=== PATIENT | female | born 1965 | race Caucasian/White ===

== ENCOUNTER 2020-01-05 16:05 | Observation (INO) | payer OTHER, SELFPAY ==
[2020-01-05 16:44] LABS: Absolute Lymphocytes (CBC) 2.6 K/uL (0.7-4.9); Basophils % 0.5 % (0-1.3); Hematocrit 47.3 % (36.0-45.0); Lymphocytes % 16.5 % (15.3-44.8); MPV 9.3 fL (7.6-11.3); RBC Red Blood Cell Count 4.98 M/uL (3.86-4.86)
[2020-01-05] MEDS ORDERED: ONDANSETRON 4 MG/2 ML VIAL ONE ×2 (16:49→22:28)
[2020-01-05] MEDS ORDERED: NA CHLORIDE 0.9% 1,000 ML ONE ×3 (16:49→23:37)
[2020-01-05 17:01] LABS: ALT/SGPT 26 U/L (12-78); AST/SGOT 18 U/L (15-37); Albumin 4.5 g/dL (3.4-5.0); Alkaline Phosphatase 91 U/L (45-117); BUN Blood Urea Nitrogen 21 mg/dL (7-18); Bicarbonate 26 mmol/L (21-32); Bilirubin Direct < 0.1 mg/dL (0-0.2); Bilirubin Total 0.4 mg/dL (0.2-1.0); Glucose Level 159 mg/dL (74-106); Lipase 91 U/L (73-393); Potassium 3.4 mmol/L (3.5-5.1); Protein, Total 8.7 g/dL (6.4-8.2); Sodium Level 132 mmol/L (136-145)
[2020-01-05] MEDS ORDERED: METOCLOPRAMIDE 10 MG/2mL INJ ONE (17:26)
[2020-01-05] MEDS ORDERED: MORPHINE 2 MG/ML SYR ONE (17:26)
[2020-01-05] MEDS ORDERED: DIPHENHYDRAMINE 50 MG/ML VIAL ONE (17:26)
[2020-01-05] MEDS ORDERED: NA CHLORIDE 0.9% 100 ML IV ONE (17:26)
[2020-01-05] MEDS ORDERED: LORazepam 2 MG/ML VIAL ONE (17:26)
[2020-01-05] MEDS ORDERED: FENTANYL CITR 100 MCG/2 ML ONE ×2 (18:23→21:03)
--- NOTE | 2020-01-05 18:58 | RAD REPORT ---
EXAM DESCRIPTION: CT - Abdomen Pelvis W Contrast - 01/05/2020 6:38 pm CLINICAL HISTORY: Abdominal pain COMPARISON: 2011 TECHNIQUE: Computed axial tomography of the abdomen pelvis was obtained. 100 cc Isovue-300 was admin istered intravenously. Oral contrast was not requested which limits evaluation of bowel. All CT scans are performed using dose optimization technique as appropriate and may include automated exposure control or mA/KV adjustment according to patient size. FINDINGS: Cholecystectomy. Fatty liver Spleen, pancreas, left adrenal and kidneys appear unremarkable. Small right adrenal adenoma unchanged . There is no evidence of diverticulitis. IMPRESSION: No acute abnormality is displayed.
[2020-01-05 19:43] LABS: Urine Blood TRACE (NEG); Urine Glucose NEGATIVE (NEG); Urine Protein 1+ (NEG); Urine pH 5.5 (5.0-7.0)
[2020-01-05] MEDS ORDERED: ACETAMINOPHEN 500 MG TAB ONE (21:09)
[2020-01-05] MEDS ORDERED: PANTOPRAZOLE 40 MG INJ ONE (21:09)
--- NOTE | 2020-01-05 21:37 | P.HP ---
Certification for Inpatient Patient admitted to: Observation With expected LOS: <2 Midnights Practitioner: I am a practitioner with admitting privileges, knowledge of patient current condition, hospital course, and medical plan of care. Services: Services provided to patient in accordance with Admission requirements found in Title 42 Section 412.3 of the Code of Federal Regulations Patient History Date of Service: 01/05/20 Reason for admission: Abdominal pain History of Present Illness: 54-year-old woman with a history hypertension presented emergency department with a complaint of abdominal pain of onset 3 days ago. Patient states the abdominal pain started a few hours after eating a burger with jalapeno. She started vomiting and having diarrhea yesterday. She denied any fever. She reports that she has not been able to tolerate any liquid or food. She describes a constant abdominal pain most severe in the right lower quadrant, nonradiating. CT abdomen and pelvis done in the ED was unremarkable. Patient has not tolerated oral challenge in the ED. She has been requiring IV opioids for pain control. She is hospitalized for further management. Allergies No Known Allergies Allergy (Unverified 05/11/12 10:42) Home Medications: Estradiol 0.5 tab PO DAILY 11/08/11 Lisinopril/Hydrochlorothiazide [Lisinopril-Hctz 20-12.5 mg Tab] 1 tab PO DAILY 11/08/11 Ciprofloxacin HCl [Cipro] 500 mg PO BID #0 tablet 05/14/12 Hydrocodone Bit/Acetaminophen [[place] 10-325 Tablet] 1 tab PO Q8H PRN #0 tablet 05/14/12 Promethazine HCl [Phenergan] 25 mg PO Q8H PRN #0 tablet 05/14/12 metroNIDAZOLE [Flagyl] 500 mg PO TID #0 tablet 05/14/12 - Past Medical/Surgical History Diabetic: No -: Hypertension -: Colonoscopy - Family History Mother -: GI disease (Diverticulitis, Crohn's disease) - Social History Smoking Status: Former smoker Alcohol use: No CD- Drugs: No Caffeine use: No Review of Systems Other: Except as documented, all other systems reviewed and negative. Physical Examination - Physical Exam General: Alert, Mild distress (Due to pain) HEENT: Mucous membr. moist/pink, Sclerae nonicteric Neck: Supple, JVD not distended Respiratory: Clear to auscultation bilaterally, Normal air movement Cardiovascular: No edema, Normal S1 S2, Other (Regular rhythm, tachycardic) Capillary refill: <2 Seconds Gastrointestinal: Normal bowel sounds, Non-distended, No rebound, No guarding, Tenderness (Diffuse) Musculoskeletal: No swelling, No erythema Integumentary: No rashes Neurological: Normal speech, Normal strength at 5/5 x4 extr - Studies Laboratory Data (last 24 hrs) 01/05/20 16:35: WBC 15.8 H, Hgb 16.0 H, Hct 47.3 H, Plt Count 295 01/05/20 16:35: Sodium 132 L, Potassium 3.4 L, BUN 21 H, Creatinine 0.88, Glucose 159 H, Total Bilirubin 0.4, AST 18, ALT 26, Alkaline Phosphatase 91, Lipase 91 Assessment and Plan - Problems (Diagnosis) (1) Gastroenteritis Current Visit: Yes Status: Acute (2) Sepsis Current Visit: Yes Status: Acute (3) Hypertension Current Visit: Yes Status: Acute - Plan Patient meets criteria for sepsis with leukocytosis and tachycardia Place under observation Hydrate with IV normal saline given hyponatremia Start IV Cipro and Flagyl Correct electrolyte abnormalities, replete potassium Supportive measures with antiemetic and IV opiates p.r.n. for pain. - Advance Directives Does patient have a Living Will: No Does patient have a Durable POA for Healthcare: No
[2020-01-05] MEDS ORDERED: DICYCLOMINE HCL 10 MG CAP ONE (22:37)
[2020-01-05] MEDS ORDERED: ONDANSETRON 4 MG/2 ML VIAL IV PRN (23:21)
[2020-01-05] MEDS ORDERED: ACETAMINOPHEN 500 MG TAB PO PRN (23:21)
[2020-01-05] MEDS: NA CHLORIDE 0.9% 1,000 ML IV SCH (23:33)
[2020-01-06 00:02] VITALS: BMI 31.9
[2020-01-06] MEDS: METRONIDAZOLE 500mg IVPB 500 MG/100 ML BAG IV SCH ×3 (00:17→16:12)
[2020-01-06 02:01] LABS: Urine Appearance CLEAR; Urine Bilirubin NEGATIVE (NEG); Urine Blood TRACE (NEG); Urine Color YELLOW; Urine Glucose NEGATIVE (NEG); Urine Protein NEGATIVE (NEG); Urine Specific Gravity >=1.030 (1.005-1.030); Urine Urobilinogen 0.2 mg/dL (0.2-1.0)
[2020-01-06 02:04] LABS: Urine Microscopic Reflex ORDER UMIC
[2020-01-06 02:10] LABS: Urine Bacteria <20 /HPF (<20); Urine Culture Reflex Order NOT NEEDED; Urine Mucus 1+ /HPF (NONE SEEN)
[2020-01-06] MEDS: MORPHINE 2 MG/ML SYR IV PRN ×5 (03:59→20:51)
[2020-01-06 07:23] LABS: Absolute Lymphocytes (CBC) 4.5 K/uL (0.7-4.9); Basophils % 0.5 % (0-1.3); Hematocrit 37.9 % (36.0-45.0); Lymphocytes % 31.3 % (15.3-44.8); MPV 9.1 fL (7.6-11.3); RBC Red Blood Cell Count 4.02 M/uL (3.86-4.86)
[2020-01-06 07:27] LABS: BUN Blood Urea Nitrogen 11 mg/dL (7-18); Bicarbonate 25 mmol/L (21-32); Glucose Level 101 mg/dL (74-106); Magnesium 2.3 mg/dL (1.8-2.4); Phosphorus 2.4 mg/dL (2.5-4.9); Sodium Level 139 mmol/L (136-145)
[2020-01-06] MEDS: NA CHLORIDE 0.9% 1,000 ML IV SCH ×2 (08:00→16:12)
[2020-01-06] MEDS: CIPROFLOXACIN 400mg IV 400 MG/200 ML BAG IV SCH ×2 (08:01→20:50)
[2020-01-06] MEDS: ENOXAPARIN 40 MG/0.4 ML SQ SCH (08:02)
--- NOTE | 2020-01-06 08:31 | P.DS ---
Admission Date: 01/05/20 Discharge Date: 01/07/20 Disposition: ROUTINE DISCHARGE Discharge Condition: FAIR Reason for Admission: Abdominal pain Consultations: None - Problems (1) Gastroenteritis Current Visit: Yes Status: Acute (2) Sepsis Current Visit: Yes Status: Acute (3) Hypertension Current Visit: Yes Status: Acute Brief History of Present Illness: 54-year-old woman with a history hypertension presented emergency department with a complaint of abdominal pain of onset 3 days ago. Patient states the abdominal pain started a few hours after eating a burger with jalapeno. She sta rted vomiting and having diarrhea yesterday. She denied any fever. She reports that she has not been able to tolerate any liquid or food. She described a constant abdominal pain most severe in the right lower quadrant, and nonradiating. CT abdomen and pelvis done in the ED was unremarkable. Patient did not tolerated oral challenge in the ED. She was requiring IV opioids for pain control. Hospital Course: Patient placed under observation and treated supportively with IV hydration. Also treated with IV antibiotics. She had no fever. Her symptoms which include d vomiting, diarrhea and abdominal pain improved with treatment. Patient tolerated diet advancement from clear liquids solid diet. She states her abdominal pain has completely resolved. She is prescribed oral Cipro and Flagyl for acute gastroenteritis. Vital Signs/Physical Exam: Temp Pulse Resp BP Pulse Ox 98.5 F 105 H 18 149/81 H 96 01/06/20 07:40 01/06/20 07:40 01/06/20 08:01 01/06/20 07:40 01/06/20 08:01 General: Alert, In no apparent distress HEENT: Mucous membr. moist/pink Neck: Supple, JVD not distended Respiratory: Clear to auscultation bilaterally, Normal air movement Cardiovascular: No edema, Regular rate/rhythm, Normal S1 S2 Gastrointestinal: Normal bowel sounds, Soft and benign, Tenderness (Right lower quadrant.) Musculoskeletal: No swelling, No erythema Integumentary: No rashes Laboratory Data at Discharge: WBC 14.3 K/uL (4.3-10.9) H 01/06/20 07:06 Hgb 12.8 g/dL (12.0-15.0) D 01/06/20 07:06 Hct 37.9 % (36.0-45.0) D 01/06/20 07:06 Plt Count 240 K/uL (152-406) 01/06/20 07:06 Sodium 139 mmol/L (136-145) 01/06/20 07:06 Potassium 3.0 mmol/L (3.5-5.1) L 01/06/20 07:06 BUN 11 mg/dL (7-18) 01/06/20 07:06 Creatinine 0.63 mg/dL (0.55-1.3) 01/06/20 07:06 Glucose 101 mg/dL (74-106) 01/06/20 07:06 Phosphorus 2.4 mg/dL (2.5-4.9) L 01/06/20 07:06 Magnesium 2.3 mg/dL (1.8-2.4) 01/06/20 07:06 Total Bilirubin 0.4 mg/dL (0.2-1.0) 01/05/20 16:35 AST 18 U/L (15-37) 01/05/20 16:35 ALT 26 U/L (12-78) 01/05/20 16:35 Alkaline Phosphatase 91 U/L (45-117) 01/05/20 16:35 Lipase 91 U/L (73-393) 01/05/20 16:35 Home Medications: Lisinopril/Hydrochlorothiazide [Lisinopril-Hctz 20-12.5 mg Tab] 1 tab PO DAILY 11/08/11 ALPRAZolam [Xanax*] 1 mg PO BIDP PRN 01/05/20 Pantoprazole [Protonix Tab*] 40 mg PO DAILY PRN 01/05/20 Tramadol HCl [Ultram] 50 mg PO TIDP PRN 01/05/20 carvediloL [Carvedilol] 6.25 mg PO BID 01/05/20 Ciprofloxacin HCl [Cipro 500 MG Tablet] 500 mg PO BID #10 tab 01/06/20 metroNIDAZOLE [Flagyl] 500 mg PO Q8H #15 tablet 01/06/20 New Medications: Ciprofloxacin HCl [Cipro 500 MG Tablet] 500 mg PO BID #10 tab metroNIDAZOLE [Flagyl] 500 mg PO Q8H #15 tablet Diet: AHA Activity: Ad giuliana
[2020-01-06] MEDS ORDERED: PANTOPRAZOLE 40MG TABLET PO PRN (08:33)
[2020-01-06] MEDS ORDERED: ALPRAZOLAM 1 MG TABLET PO PRN (08:33)
--- NOTE | 2020-01-06 08:35 | P.PN ---
Subjective Date of Service: 01/06/20 Chief Complaint: Abdominal pain Patient states abdominal pain is much better. She has had no diarrhea or vomiting since hospitalization. Physical Examination - Vital Signs Temperature: 98.5 F Blood Pressure: 149/81 Pulse: 105 Respirations: 18 Pulse Ox (%): 96 - Physical Exam General: Alert, In no apparent distress HEENT: Mucous membr. moist/pink, Sclerae nonicteric Neck: Supple, JVD not distended Respiratory: Clear to auscultation bilaterally, Normal air movement Cardiovascular: No edema, Regular rate/rhythm, Normal S1 S2 Gastrointestinal: Normal bowel sounds, Soft and benign, Tenderness (Right lower quadrant.) Musculoskeletal: No swelling, No erythema Integumentary: No rashes - Studies Laboratory Data (last 24 hrs) 01/05/20 16:35: WBC 15.8 H, Hgb 16.0 H, Hct 47.3 H, Plt Count 295 01/05/20 16:35: Sodium 132 L, Potassium 3.4 L, BUN 21 H, Creatinine 0.88, Glucose 159 H, Total Bilirubin 0.4, AST 18, ALT 26, Alkaline Phosphatase 91, Lipase 91 Assessment And Plan - Current Problems (Diagnosis) (1) Gastroenteritis Current Visit: Yes Status: Acute (2) Sepsis Current Visit: Yes Status: Acute (3) Hypertension Current Visit: Yes Status: Acute - Plan Continue IV normal saline. Continue IV Cipro and Flagyl Correct electrolyte abnormalities, replete potassium Liquid diet and advanced as tolerated. Resume home medications.
[2020-01-06] MEDS ORDERED: HOME MED 1 EA UNK (Lisinopril/Hydrochlorothiazide [Lisinopril-Hctz 20-12.5 Mg Tab] 1 TAB) PO SCH (09:00)
[2020-01-06] MEDS ORDERED: POTASSIUM CL SA 10 MEQ TAB PO ONE (09:06)
[2020-01-06] MEDS: POTASS/SODIUM PHOSPHATE 1 PKT POWD.PACK PO SCH ×3 (09:32→12:12)
[2020-01-06] MEDS: carvediloL 6.25 MG TAB PO SCH ×2 (09:33→20:50)
[2020-01-06 22:51] VITALS: O2SAT 97
[2020-01-07] MEDS: MORPHINE 2 MG/ML SYR IV PRN ×3 (01:43→09:45)
[2020-01-07] MEDS: NA CHLORIDE 0.9% 1,000 ML IV SCH ×2 (04:15→07:21)
[2020-01-07 06:19] LABS: Absolute Lymphocytes (CBC) 3.4 K/uL (0.7-4.9); Basophils % 0.8 % (0-1.3); Hematocrit 35.5 % (36.0-45.0); Lymphocytes % 32.6 % (15.3-44.8); MPV 9.9 fL (7.6-11.3); RBC Red Blood Cell Count 3.72 M/uL (3.86-4.86)
[2020-01-07 06:21] LABS: BUN Blood Urea Nitrogen 10 mg/dL (7-18); Bicarbonate 25 mmol/L (21-32); Glucose Level 120 mg/dL (74-106); Phosphorus 2.1 mg/dL (2.5-4.9); Potassium 3.7 mmol/L (3.5-5.1); Sodium Level 143 mmol/L (136-145)
[2020-01-07] MEDS ORDERED: POTASSIUM PHOS IN 0.9 % NACL 15 MMOL/250 ML BAG IV ONE (07:45)
[2020-01-07 08:31] VITALS: BP 124/77; TEMP 98.9
[2020-01-07] MEDS ORDERED: lisinopriL 20 MG TAB PO SCH (09:00)
[2020-01-07] MEDS: ENOXAPARIN 40 MG/0.4 ML SQ SCH ×2 (09:00→09:37)
[2020-01-07] MEDS ORDERED: hydroCHLOROthiazide 12.5 MG CAP PO SCH (09:00)
[2020-01-07] MEDS: CIPROFLOXACIN 400mg IV 400 MG/200 ML BAG IV SCH (09:02)
[2020-01-07] MEDS: METRONIDAZOLE 500mg IVPB 500 MG/100 ML BAG IV SCH ×2 (09:03)
[2020-01-07] MEDS: carvediloL 6.25 MG TAB PO SCH (09:04)
[2020-01-07] MEDS ORDERED: POTASSIUM CL SA 10 MEQ TAB PO ONE (09:07)
[2020-01-07] MEDS ORDERED: POTASS/SODIUM PHOSPHATE 1 PKT POWD.PACK PO ONE (09:10)
[2020-01-07] MEDS ORDERED: POTASS/SODIUM PHOSPHATE 1 PKT POWD.PACK PO SCH (11:00)
--- NOTE | 2020-01-08 17:17 | ER ---
Nurse's Notes [facility] Name: Maude Pino Age: 54 yrs Sex: Female : 1965 Arrival Date: 01/05/2020 Time: 16:07 Bed 20 Private MD: Diagnosis: Intractable Vomiting;Intractable Abdominal Pain Presentation: 01/04 16:26 Chief complaint: Patient states: Epigastric pain radiating to R abdomen, N/V x 2 days, ph diarrhea that began yesterday, pt noted to be dry heaving in triage. Coronavirus screen: Patient denies a cough. Patient denies shortness of breath or difficulty breathing. Patient denies measured and/or subjective temperature greater than 100.4F prior to today's visit. Patient denies travel on a cruise ship or to a country the [facility] currently lists as an affected area. Patient denies contact with known and/or suspected case of COVID-19. Ebola Screen: No symptoms or risks identified at this time. Initial Sepsis Screen: Does the patient meet any 2 criteria? No. Patient's initial sepsis screen is negative. Does the patient have a suspected source of infection? No. Patient's initial sepsis screen is negative. Risk Assessment: Do you want to hurt yourself or someone else? Patient reports no desire to harm self or others. Onset of symptoms was January 05, 2020. 16:26 Method Of Arrival: Ambulatory 16:26 Acuity: ADAMA 3 ph ACTIVITY THERAPY SPECIALIST: 17:46 LMP N/A - Hysterectomy ca1 Historical: - Allergies: 16:29 No Known Allergies; ph - PMHx: 16:29 Hypertension; ph - PSHx: 16:29 Hysterectomy; ; Cholecystectomy; Appendectomy; Tonsillectomy; Hernia repair; ph left knee sx; - Immunization history:: Adult Immunizations unknown. - Social history:: Smoking status: Patient denies any tobacco usage or history of. Screenin:35 Abuse screen: Denies threats or abuse. Denies injuries from another. Nutritional ca1 screening: No deficits noted. Tuberculosis screening: No symptoms or risk factors identified. Fall Risk None identified. Assessment: 16:35 General: Appears in no apparent distress. uncomfortable, Behavior is calm, cooperative, ca1 appropriate for age. Pain: Complains of pain in epigastric area and right upper quadrant Pain radiates to posterior aspect of right lateral abdomen and anterior aspect of right lateral abdomen Pain currently is 7 out of 10 on a pain scale. Quality of pain is described as sharp, Pain began 2-3 days ago. Is continuous. Neuro: Level of Consciousness is awake, alert, obeys commands, Oriented to person, place, time, situation. Cardiovascular: Heart tones S1 S2 present Capillary refill < 3 seconds Patient's skin is warm and dry. Respiratory: Airway is patent Respiratory effort is even, unlabored, Respiratory pattern is regular, symmetrical, Breath sounds are clear bilaterally. GI: Abdomen is round non-distended, Bowel sounds present X 4 quads. Abd is soft X 4 quads Abdomen is tender to palpation in epigastric area and right upper quadrant Reports nausea, vomiting, since 3 days. : No signs and/or symptoms were reported regarding the genitourinary system. EENT: No signs and/or symptoms were reported regarding the EENT system. Derm: Skin is intact, is healthy with good turgor, Skin is pink, warm \T\ dry. Musculoskeletal: Circulation, motion, and sensation intact. Capillary refill < 3 seconds. 17:45 Reassessment: Patient appears in no apparent distress at this time. Patient and/or ca1 family updated on plan of care and expected duration. Pain level reassessed. Patient is alert, oriented x 3, equal unlabored respirations, skin warm/dry/pink. 19:24 Reassessment: Patient remains tachycardic in the 117-122 bpm range. Order received to aj1 hold discharge, administer IV fluids and then discharge patient if heart rate is less than 100. 19:26 General: Appears in no apparent distress. uncomfortable, Behavior is calm, cooperative, aj1 appropriate for age. Neuro: Level of Consciousness is awake, alert, obeys commands. Cardiovascular: Patient's skin is warm and dry. Respiratory: Airway is patent Respiratory effort is even, unlabored, Respiratory pattern is regular, symmetrical. GI: Abdomen is round non-distended, Reports nausea. EENT: No signs and/or symptoms were reported regarding the EENT system. Derm: No signs and/or symptoms reported regarding the dermatologic system. Skin is pink, warm \T\ dry. normal. Musculoskeletal: No signs and/or symptoms reported regarding the musculoskeletal system. Circulation, motion, and sensation intact. 20:30 Reassessment: Patient appears in no apparent distress at this time. No changes from 1 previously documented assessment. Patient and/or family updated on plan of care and expected duration. Pain level reassessed. Patient is alert, oriented x 3, equal unlabored respirations, skin warm/dry/pink. 21:09 Reassessment: Patient appears in no apparent distress at this time. No changes from 1 previously documented assessment. Patient and/or family updated on plan of care and expected duration. Pain level reassessed. Patient is alert, oriented x 3, equal unlabored respirations, skin warm/dry/pink. 22:14 Reassessment: Patient appears in no apparent distress at this time. No changes from aj1 previously documented assessment. Patient and/or family updated on plan of care and expected duration. Pain level reassessed. Patient is alert, oriented x 3, equal unlabored respirations, skin warm/dry/pink. 23:06 Reassessment: Patient appears in no apparent distress at this time. No changes from 1 previously documented assessment. Patient and/or family updated on plan of care and expected duration. Pain level reassessed. Patient is alert, oriented x 3, equal unlabored respirations, skin warm/dry/pink. Vital Signs: 16:26 BP 165 / 102; Pulse 117; Resp 18; Temp 99.4; Pulse Ox 96% on R/A; Weight 95.25 kg; ph Height 5 ft. 8 in. (172.72 cm); Pain 7/10; 17:45 BP 175 / 96; Pulse 110; Resp 18 S; Pulse Ox 95% on R/A; ca1 20:31 BP 135 / 78; Pulse 127; Resp 18; Pulse Ox 98% on R/A; dh4 21:08 BP 138 / 70; Pulse 126; Resp 20; Pulse Ox 96% on R/A; aj1 22:23 BP 138 / 78; Pulse 122; Resp 20; Pulse Ox 96% on R/A; dh4 22:34 Temp 99.1(TE); aj1 16:26 Body Mass Index 31.93 (95.25 kg, 172.72 cm) ph ED Course: 16:07 Patient arrived in ED. as 16:25 Ochoa Bonner PA is PHCP. yen 16:25 Sawyer Bourgeois MD is Attending Physician. jmm 16:28 Triage completed. ph 16:28 Funmilayo Barr, RN is Primary Nurse. ca1 16:29 Arm band placed on Patient placed in an exam room. ph 16:35 Patient has correct armband on for positive identification. Bed in low position. Call ca1 light in reach. Side rails up X 1. Pulse ox on. NIBP on. Warm blanket given. 16:35 No provider procedures requiring assistance completed. Inserted saline lock: 20 gauge ca1 in right antecubital area, using aseptic technique. Blood collected. 18:39 CT Abd/Pelvis - IV Contrast Only In Process Unspecified. EDMS 19:14 Report given to YASH Lara. ca1 21:17 Jayson Lisa is Hospitalizing Provider. jmm 22:15 Patient admitted, IV remains in place. aj1 22:46 Report given to YASH Hoffman on 4th floor. aj1 Administered Medications: 16:40 Drug: NS 0.9% 1000 ml Route: IV; Rate: 1 bolus; Site: right antecubital; ca1 16:41 Drug: Zofran (Ondansetron) 4 mg Route: IVP; Site: right antecubital; ca1 17:10 Drug: morphine 2 mg Route: IVP; Site: right antecubital; ca1 17:12 Drug: diphenhydrAMINE 12.5 mg Route: IVP; Site: right antecubital; ca1 17:20 Drug: Ativan 1 mg Route: IVP; Site: right antecubital; ca1 17:22 Drug: Reglan 10 mg Route: IVP; Site: right antecubital; ca1 18:18 Drug: fentaNYL (PF) 50 mcg {Note: RASS - 0.} Route: IVP; Site: right antecubital; ca1 19:00 Follow up: Response: No adverse reaction; RASS: Alert and Calm (0) aj1 19:27 Drug: NS 0.9% 1000 ml Route: IV; Rate: 1 bolus; Site: right antecubital; aj1 21:19 Follow up: IV Status: Completed infusion; IV Intake: 1000ml aj1 21:10 Drug: fentaNYL (PF) 50 mcg Route: IVP; Site: right antecubital; aj1 22:18 Follow up: Response: No adverse reaction; Pain is decreased; RASS: Alert and Calm (0) aj1 21:11 Drug: Tylenol 1000 mg Route: PO; aj1 22:17 Follow up: Response: No adverse reaction aj1 21:11 Drug: ProTONIX 40 mg Route: IVP; Site: right antecubital; aj1 22:17 Follow up: Response: No adverse reaction aj1 22:25 Drug: Zofran (Ondansetron) 4 mg Route: IVP; Site: right antecubital; aj1 23:09 Follow up: Response: No adverse reaction aj1 22:34 Drug: Bentyl 20 mg Route: PO; aj1 23:09 Follow up: Response: No adverse reaction aj1 Intake: 21:19 IV: 1000ml; Total: 1000ml. aj1 Outcome: 19:07 Discharge ordered by MD. maddie 21:18 Decision to Hospitalize by Provider. yen 23:08 Admitted to Med/surg accompanied by tech, via stretcher. aj1 23:08 Condition: good 23:08 Discharge instructions given to patient, Instructed on the need for admit, Demonstrated understanding of instructions. 23:11 Patient left the ED. aj1 Signatures: Dispatcher [employer] EDMS Jane Munoz RN RN aj1 Ochoa Bonner PA PA jmm Martinez, Amelia as Hall, Patricia, RN RN Funmilayo Barr RN RN [facility] Alpesh Diaz [facility]
--- NOTE | 2020-01-08 17:18 | EDPHYS ---
Physician Documentation [facility] Name: Maude Pino Age: 54 yrs Sex: Female : 1965 Arrival Date: 01/05/2020 Time: 16:07 Bed 20 Private MD: Sawyer Erickson HPI: 01/04 16:26 This 54 yrs old Female presents to ER via Ambulatory with complaints of jmm Vomiting/Diarrhea. 16:26 The patient presents to the emergency department with nausea, vomiting, diarrhea. jmm Onset: The symptoms/episode began/occurred gradually, 2 day(s) ago. Possible causes: unknown. The symptoms are aggravated by nothing. The symptoms are alleviated by nothing. Associated signs and symptoms: Pertinent positives: abdominal pain, Pertinent negatives: fever. Patient complains of epigastric pain and right flank pain beginning approx 2 days ago. Similar episodes with diverticulitis. . 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 - Social history:: Smoking status: Patient denies any tobacco usage or history of. ROS: 16:26 Constitutional: Negative for fever, chills, and weight loss, Cardiovascular: Negative jmm for chest pain, palpitations, and edema, Respiratory: Negative for shortness of breath, cough, wheezing, and pleuritic chest pain. 16:26 Abdomen/GI: Positive for abdominal pain, nausea and vomiting, diarrhea. 16:26 All other systems are negative. Exam: 16:26 Constitutional: This is a well developed, well nourished patient who is awake, alert, jmm and in no acute distress. Head/Face: atraumatic. Eyes: EOMI, no conjunctival erythema appreciated ENT: Moist Mucus Membranes Neck: Trachea midline, Supple Chest/axilla: Normal chest wall appearance and motion. Cardiovascular: Regular rate and rhythm. No edema appreciated Respiratory: Normal respirations, no respiratory distress appreciated 16:26 Back: Normal ROM Skin: General appearance color normal MS/ Extremity: Moves all extremities, no obvious deformities appreciated, no edema noted to the lower extremities Neuro: Awake and alert, normal gait Psych: Behavior is normal, Mood is normal, Patient is cooperative and pleasant 16:26 Abdomen/GI: Inspection: obese Bowel sounds: normal, Palpation: soft, mild abdominal tenderness, in the epigastric area and right lower quadrant. Vital Signs: 16:26 BP 165 / 102; Pulse 117; Resp 18; Temp 99.4; Pulse Ox 96% on R/A; Weight 95.25 kg; ph Height 5 ft. 8 in. (172.72 cm); Pain 7/10; 17:45 BP 175 / 96; Pulse 110; Resp 18 S; Pulse Ox 95% on R/A; ca1 20:31 BP 135 / 78; Pulse 127; Resp 18; Pulse Ox 98% on R/A; dh4 21:08 BP 138 / 70; Pulse 126; Resp 20; Pulse Ox 96% on R/A; aj1 22:23 BP 138 / 78; Pulse 122; Resp 20; Pulse Ox 96% on R/A; dh4 22:34 Temp 99.1(TE); aj1 16:26 Body Mass Index 31.93 (95.25 kg, 172.72 cm) ph MDM: 16:29 Patient medically screened. [facility] 19:03 Data reviewed: vital signs, nurses notes. [facility] 21:14 Data reviewed: lab test result(s), radiologic studies, CT scan. Counseling: I had a [facility] detailed discussion with the patient and/or guardian regarding: the historical points, exam findings, and any diagnostic results supporting the discharge/admit diagnosis, lab results, the need for further work-up and treatment in the hospital. ED course: Patient continues to be tachycardic, pain is not completely resolved. Will admit for intractable pain and vomiting. I discussed the patient with Dr. Lisa whom accepted admission. . 01/04 16:26 Order name: Basic Metabolic Panel; Complete Time: 17:04 [facility] 01/04 16:26 Order name: CBC with Diff; Complete Time: 16:55 [facility] 01/04 16:26 Order name: Hepatic Function; Complete Time: 17:04 [facility] 01/04 16:26 Order name: Lipase; Complete Time: 17:04 [facility] 01/04 17:17 Order name: CT Abd/Pelvis - IV Contrast Only; Complete Time: 19:01 [facility] 01/04 19:24 Order name: Urine Dipstick--Ancillary (enter results); Complete Time: 19:41 nc 01/04 16:26 Order name: IV Saline Lock; Complete Time: 16:36 [facility] 01/04 16:26 Order name: Labs collected and sent; Complete Time: 16:37 [facility] 01/04 16:26 Order name: Urine Dipstick-Ancillary (obtain specimen); Complete Time: 21:09 [facility] 01/04 16:26 Order name: Urine Test (obtain specimen); Complete Time: 21:09 [facility] Administered Medications: 16:40 Drug: NS 0.9% 1000 ml Route: IV; Rate: 1 bolus; Site: right antecubital; ca1 16:41 Drug: Zofran (Ondansetron) 4 mg Route: IVP; Site: right antecubital; ca1 17:10 Drug: morphine 2 mg Route: IVP; Site: right antecubital; ca1 17:12 Drug: diphenhydrAMINE 12.5 mg Route: IVP; Site: right antecubital; ca1 17:20 Drug: Ativan 1 mg Route: IVP; Site: right antecubital; ca1 17:22 Drug: Reglan 10 mg Route: IVP; Site: right antecubital; ca1 18:18 Drug: fentaNYL (PF) 50 mcg {Note: RASS - 0.} Route: IVP; Site: right antecubital; ca1 19:00 Follow up: Response: No adverse reaction; RASS: Alert and Calm (0) aj1 19:27 Drug: NS 0.9% 1000 ml Route: IV; Rate: 1 bolus; Site: right antecubital; aj1 21:19 Follow up: IV Status: Completed infusion; IV Intake: 1000ml aj1 21:10 Drug: fentaNYL (PF) 50 mcg Route: IVP; Site: right antecubital; aj1 22:18 Follow up: Response: No adverse reaction; Pain is decreased; RASS: Alert and Calm (0) aj1 21:11 Drug: Tylenol 1000 mg Route: PO; aj1 22:17 Follow up: Response: No adverse reaction aj1 21:11 Drug: ProTONIX 40 mg Route: IVP; Site: right antecubital; aj1 22:17 Follow up: Response: No adverse reaction aj1 22:25 Drug: Zofran (Ondansetron) 4 mg Route: IVP; Site: right antecubital; aj1 23:09 Follow up: Response: No adverse reaction aj1 22:34 Drug: Bentyl 20 mg Route: PO; aj1 23:09 Follow up: Response: No adverse reaction aj1 Disposition: 01/05 07:40 Co-signature as Attending Physician, Sawyer Bourgeois MD I agree with the assessment and juan f plan of care. Disposition: 01/05/20 21:18 Hospitalization ordered by Jayson Lisa for Observation. Preliminary diagnosis are Intractable Vomiting, Intractable Abdominal Pain. - Bed requested for Telemetry/MedSurg (observation). - Status is Observation. aj1 - Condition is Stable. - Problem is new. - Symptoms are unchanged. Signatures: Dispatcher [employer] EDMS Jane Munoz RN RN aj1 Anderson, Corey, MD MD cha Mickail, Joel, PA PA jmm Hall, Patricia, RN RN ph Garcia, Cindy, RN RN cg Acob, Cheryl, RN RN ca1 Corrections: (The following items were deleted from the chart) 01/04 20:47 19:07 01/05/2020 19:07 Discharged to Home. Impression: Unspecified abdominal pain. [facility] Condition is Stable. Forms are Medication Reconciliation Form, Thank You Letter, Antibiotic Education, Prescription Opioid Use. [facility] 21:17 19:03 Counseling: I had a detailed discussion with the patient and/or guardian maddie regarding: the historical points, exam findings, and any diagnostic results supporting the discharge/admit diagnosis, lab results, radiology results, the need for outpatient follow up, to return to the emergency department if symptoms worsen or persist or if there are any questions or concerns that arise at home, [facility] 21:17 19:03 ED course: Patient is alert and non toxic in appearance in the ED. Advised to [facility] follow up with GI for reevaluation. patient is otherwise given strict return precautions. patient understood and agrees with the plan of care. . [facility] 22:06 21:18 Hospitalization Ordered by Jayson Lisa for Observation. Preliminary diagnosis cg is Intractable Vomiting; Intractable Abdominal Pain. Bed requested for Telemetry/MedSurg (observation). Status is Observation. Condition is Stable. Problem is new. Symptoms are unchanged. [facility] 23:11 22:06 01/05/2020 21:18 Hospitalization Ordered by Jayson Lisa for Observation. aj1 Preliminary diagnosis is Intractable Vomiting; Intractable Abdominal Pain. Bed requested for Telemetry/MedSurg (observation). Status is Observation. Condition is Stable. Problem is new. Symptoms are unchanged. cg
== END 2020-01-07 10:45 | disposition home or self-care (01) ==
LOC: ER 16:05 → ERHOLD 21:50 → 4TH 22:48
PROVIDERS: ADMIT Internal Medicine; ATTEND Internal Medicine
DX: A41.9 Sepsis, unspecified organism (principal); K52.9 Noninfective gastroenteritis and colitis, unspecified; I10 Essential (primary) hypertension; Z87.891 Personal history of nicotine dependence
CPT/HCPCS: 96361; 87040 ×2; 85025 ×3; 80048 ×3; 36415 ×2; 83735; 84100 ×2; 84132; 80076; 81003; 83690; 74177; 96375; 96374; 99285; Q9967; J2765; J1200; C9113; J1650 ×2; J3010 ×2; J2270 ×9; J7030 ×6; J2405 ×3; J0744 ×3; G0378 ×3; 81015

== ENCOUNTER 2021-03-04 19:44 | Emergency (ER) | payer OTHER ==
[2021-03-04 21:44] LABS: Absolute Lymphocytes (CBC) 2.3 K/uL (0.7-4.9); Basophils % 0.9 % (0-1.3); Hematocrit 41.5 % (36.0-45.0); MPV 8.9 fL (7.6-11.3); RBC Red Blood Cell Count 4.46 M/uL (3.86-4.86)
[2021-03-04 21:59] LABS: Albumin 3.8 g/dL (3.4-5.0); Bilirubin Total 0.2 mg/dL (0.2-1.0); Potassium 3.8 mmol/L (3.5-5.1); Protein, Total 7.5 g/dL (6.4-8.2)
--- NOTE | 2021-03-04 22:06 | RAD REPORT ---
EXAM DESCRIPTION: RAD - Chest Single View - 03/04/2021 9:59 pm CLINICAL HISTORY: COUGH Chest pain. COMPARISON: CHEST SINGLE VIEW dated 11/08/2011; ABDOMEN ACUTE SERIES dated 10/06/2010; ABDOMEN ACUTE SE CALEB dated 10/23/2009 FINDINGS: Portable technique limits examination quality. The lungs are grossly clear. The heart is normal in size. No displaced fractures. IMPRESSION: No acute intrathoracic process suspected.
[2021-03-04] MEDS ORDERED: IBUPROFEN 400 MG TAB ONE (22:09)
[2021-03-04] MEDS ORDERED: NA CHLORIDE 0.9% 500 ML ONE (22:09)
[2021-03-04] MEDS ORDERED: METOCLOPRAMIDE 10 MG/2mL INJ ONE ×2 (22:09→22:11)
[2021-03-04] MEDS ORDERED: Magnesium Sulfate 2gm IVPB 2 G/50 ML BAG IV ONE (22:24)
[2021-03-04] MEDS ORDERED: LEVALBUTEROL 1.25 MG/3 ML NEB ONE (22:24)
[2021-03-04] MEDS ORDERED: dexAMETHasone 10 MG/ML VIAL ONE (22:54)
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
[2021-03-06 04:39] VITALS: TEMP 98.3
[2021-03-06 04:44] VITALS: BP 125/81
[2021-03-06 04:46] VITALS: O2SAT 95
== END 2021-03-04 23:36 | disposition home or self-care (01) ==
LOC: ER 19:44
DX: U07.1 COVID-19 (principal); I10 Essential (primary) hypertension; F17.210 Nicotine dependence, cigarettes, uncomplicated
CPT/HCPCS: 85025; 36415; 85379; 80053; 71045; U0003; J2765 ×2; J1100; J3475; J7040; 96361; 96365; 96375; 99284

== ENCOUNTER → 2023-08-16 | Emergency (ER) | payer OTHER ==
[~2023-08-16] MED LIST: CIPROFLOXACIN 400mg IV 400 MG/200 ML BAG IV ONE; FAMOTIDINE 20 MG/2 ML VIAL IV ONE; METRONIDAZOLE 500mg IVPB 500 MG/100 ML BAG IV ONE; MORPHINE 4 MG/ML SYR ONE; NA CHLORIDE 0.9% 1,000 ML ONE; ONDANSETRON 4 MG/2 ML VIAL ONE
[2023-08-16 06:46] LABS: Hematocrit 46.7 % (36.0-45.0); Lymphocytes % 27.5 % (15.3-44.8); MCV 92.2 fL (80-100); MPV 8.2 fL (7.6-11.3); Platelets 373 thou/uL (152-406); RBC Red Blood Cell Count 5.06 M/uL (3.86-4.86)
[2023-08-16 07:18] LABS: Albumin 4.1 g/dL (3.4-5.0); Bilirubin Total 0.6 mg/dL (0.2-1.0); Potassium 3.2 mEq/L (3.5-5.1); Protein, Total 8.4 g/dL (6.4-8.2)
--- NOTE | 2023-08-16 07:47 | RAD REPORT ---
EXAM DESCRIPTION: CTAbdomen Pelvis W Contrast - 08/16/2023 7:35 am CLINICAL HISTORY: Abdominal pain. ABD PAIN COMPARISON: Abdomen Pelvis W Contrast dated 01/05/2020; CT ABD PELVIS W CONTRAST dated 05/13/2012; C T ABD PELVIS W CONTRAST dated 05/09/2012; CT ABD PELVIS W CONTRAST dated 11/07/2011 TECHNIQUE: Biphasic CT imaging of the abdomen and pelvis was performed with 100 ml non-ionic IV cont rast. All CT scans are performed using dose optimization technique as appropriate and may include automated exposure control or mA/KV adjustment according to patient size. FINDINGS: The lung bases are clear. The liver demonstrates diffuse fatty infiltration. Spleen, pancreas, left adrenal gland and kidneys a re within normal limits. 15 mm right adrenal mass, likely adenoma. Cholecystectomy. No bowel obstruction, free air, free fluid or abscess. Sigmoid diverticulosis coli is present without diverticulitis. Appendectomy. No evidence of significant lymphadenopathy. No suspicious bony findings. IMPRESSION: Mild diffuse fatty liver infiltration. Sigmoid diverticulosis coli without diverticulitis.
[2023-08-16 08:18] LABS: Urine Bacteria None Seen /HPF (<20); Urine Bilirubin NEGATIVE (Negative); Urine Blood Negative (Negative); Urine Clarity Clear (Clear); Urine Color Light-Yellow (Yellow); Urine Glucose NEGATIVE (Negative); Urine Mucus Slight /HPF (None Seen); Urine Protein TRACE (Negative); Urine RBC <5 /HPF (None Seen); Urine Urobilinogen Normal (Normal); Urine pH 5.5 (5.0-7.0)
[2023-08-16 08:19] LABS: Specific Gravity > 1.030 (1.005-1.030)
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
[2023-08-16 10:34] VITALS: TEMP 98.6
[2023-08-16 10:51] VITALS: BP 141/87; O2SAT 94
--- NOTE | 2023-08-16 12:19 | EKG ---
Test Date: 2023-08-16 Test Time: 07:40:47 Votator Machine Operator: JOHNY MEASUREMENT RESULTS: Intervals: Rate: 100 [place]: 162 QRSD: 68 QT: 382 QTc: 492 [place]: P: 84 [place]: 162 QRS: 72 T: 78 INTERPRETIVE STATEMENTS: Normal sinus rhythm Prolonged QT Abnormal ECG Compared to ECG 11/08/2011 12:17:28 Prolonged QT interval now present Sinus tachycardia no longer present Electronically Signed On 08-16-23 12:18:29 [employer] by Clifford Piper
== END ==
LOC: ER 06:15
DX: R10.84 Generalized abdominal pain (principal); I10 Essential (primary) hypertension; F17.210 Nicotine dependence, cigarettes, uncomplicated
CPT/HCPCS: 96365; 96361; 96368; 93005; 85025; 81001; 36415; 84484; 83690; 80053; 74177; 96375; 99285; 96366; Q9967; J2405; J0744; J7030 ×2